=== PATIENT | female | born 1980 | race Caucasian/White ===

== ENCOUNTER 2017-05-20 05:26 | Inpatient (IN) ==
--- OUTSIDE RECORDS SUMMARY | 2017-05-20 05:36 | External Medical Summary | Continuity of Care Document ---
:1980 Author Organization [facility] Address [address] [phone] Phone Support Name Relationship Address Phone Doi Knight spouse [address] [facility] [phone] [place] [address] Allergies, Adverse Reactions, Alerts Substance Reaction Severity Status tuberculin,PPD,multi-puncture Unknown Active Medications Medication Instructions Dosage Effective Dates Status Comments (start - stop) Take 1 by mouth daily - Active Culturelle Probiotics - Active 10 billion cell-200 mg chewable tablet Problems Condition Effective Dates (start - stop) Clinical Status Supervision of elderly multigravida, - second trimester Previous Low Transverse - Encounter for suprvsn of normal - , second trimester 19 weeks gestation of - Supervision of elderly multigravida, - second trimester 14 weeks gestation of - Supervision of elderly multigravida, - second trimester Previous Low Transverse - 19 weeks gestation of - Routine Care, Multigravida 36 weeks gestation of - Routine Care, Multigravida 37 weeks gestation of - Routine Care, Multigravida 38 weeks gestation of - Dysuria Follow-Up, Routine - Follow-Up, Routine - Follow-Up, Routine Painful micturition, unspecified Encounter for suprvsn of normal - , first trimester 9 weeks gestation of - Active Procedures Procedure Date OB Visit No Charge Results Test Name Date and Time Measure Units Reference Range Abnormal Flag Comments Unknown Advance Directives Directive Yes / No Effective Date File Name Unknown Encounters Encounter Practice Location Reason(s) Diagnoses Date Provider Care Team Description For Visit Members Bibiana [place] Supervision of Bob-0 Juju In Womens elderly 5-201 Daily. Health [place], multigravida, 7 700 [address] second Medical 1522, trimesterPrevious [facility], Low Transverse Ayaz Ybarra, C-SectionEncounte 120, , r for suprvsn of [facility] normal , [place], tel:+ second [phone] [id number] weeks , [place]. gestation of tel: [phone] Bibiana Staples Supervision of Bob-0 Juju In Womens Ultrasound elderly - Daily. Health PA, multigravida, 7 700 PO Box second Medical 1522, trimesterPrevious [facility], Low Transverse Ayaz Ybarra, C-Sgbwrso63 weeks 120, , gestation of [place], [place], tel:+ [phone] , [place]. tel: [phone] Bibiana Staples Supervision of October-3 Juju In Womens elderly -201 Daily. Health PA, multigravida, 7 700 PO Box second Medical 1522, [email or web address] weeks [facility], gestation of Ayaz Ybarra, 120, , [facility] [place], tel:+ [phone] , [place]. tel: [phone] Bibiana Staples Encounter for October-0 Juju In Womens suprvsn of normal -201 Daily. Health PA, , first 7 700 PO Box trimester9 weeks Medical 1522, gestation of [facility], Ayaz Ybarra, 120, , [facility] [place], tel:[phone] , [place]. tel:[phone] Bibiana Staples Dec-0 Anderson In Womens Follow-Up, Germaine. Health MARCELL, RoutinePostpartum 5 700 PO Box Follow-Up, Medical 1522, RoutinePainful [facility], micturition, Dr, Ayaz [place], unspecified 120, [id number], [place], tel:[phone] , [place]. tel: [phone] Bibiana Staples DysuriaPostpartum Nov-0 Juju Referring In Womens Follow-Up, 9201 Daily. Provider: Health MARCELL, Routine 5 700 Daily PO Box Medical Juju L, 1522, [facility] Dr Bettie, [facility] [place], 120, [place] [id number], Jhoan [facility] 120, [place], [place]ho[place], tel:[phone] [place], , [place]. [id number]. tel: tel: [phone] Bibiana Staples Routine Care, Oct-2 Juju In Womens [id number] 6-201 Daily. Health MARCELL, weeks gestation 5 700 PO Box of Medical 1522, [place] [address] Bettie, [facility] [place], 120, [id number], [place], tel:[phone] , [place]. tel: [phone] Bibiana Staples Routine Care, Oct-1 Juju In Womens [id number] 9-201 Daily. Health MARCELL, weeks gestation 5 700 PO Box of Medical 1522, [place] [address] Bettie, [facility] [place], 120, [id number], [place], tel:[phone] , [place]. tel: [phone] Bibiana [place] Routine Care, Oct-1 Juju In Womens Braskaqbvavc11 3-201 Daily. Health [place], weeks gestation 5 700 PO Box of Medical 1522, [place] [address] Bettie, [facility] [place], 120, [id number], [place], tel:[phone] , [place]. tel: [phone] Bibiana Staples Sep-2 Juju Referring In Womens 8-201 Daily. Provider: Health MARCELL, 5 700 Daily PO Box Medical Juju L, 1522, Center [address], [facility] [place], 120, [place] [id number], Jhoan [facility] 120, Jhoan [place], tel:[phone] [place], , [place]. [id number]. tel: tel: [phone] Associates [facility] Nimesh In Womens 1-[address], [address] [place] [address] Center 1522, Ayaz Ybarra, 120, [place], [place], [id number], [place] [id number] tel: , [place]. tel: [phone] Family History Family Member Diagnosis Age At Onset Maternal Aunt Uterine Cancer Mother Hypertension Maternal Aunt Cancer, breast Maternal Aunt Cancer, breast Maternal Grandmother Asthma Mother Hyperlipidemia Maternal Aunt Non-Hodgkins Lymphoma Maternal Grandmother COPD Maternal Aunt Cancer, breast Immunizations Vaccine Date Status Comments Influenza, seasonal, injectable, completed Source: Source Unspecified preservative free, 3 yrs or older Tdap completed Source: Source Unspecified Tdap completed Source: Source Unspecified Payers Payer name Insurance type Covered alliance party ID Authorization(s) [facility] Medical [facility] [id number] Social History Type Description Quantity Date Captured Alcohol Use Details No Caffeine Use Details Unknown Tobacco Use Status Unknown Smoking Status Never smoker Vital Signs Date / Height Weight BMI Pulse Blood Temperature Respiratory Body Head BMI Time: Rate Pressure Rate Surface Circumference percentile Area 147.70 24.9 lbs 6 mm[Hg] 11:43 kg/m AM eter (2) Chief Complaint And Reason For Visit Unknown Chief Complaint And Reason For Visit Reason For Referral Reason For Referral Unknown Plan Of Care Date Type Action Status Appointment Isabella Knight BOOKED Future Order: Radiology Order OB Detailed Complete Ultrasound Ordered ([id number]) Date Type Problem Goal Intervention Status Start Date Unknown. History Of Present Illness Encounter Date Complaint History Of Present Illness This patient has no known history of present illness Functional Status Encounter Date Functional Assessment Cognitive Assessment Unknown Medications Administered Medication Instructions Dosage Effective Dates (start - stop) Status Comments Drug Treatment Unknown Instructions Date Instruction Additional Information HIV and other routine tests risk factors identified by history anticipated course of care nutrition and weight gain counseling, special diet toxoplasmosis precautions (cats / raw meat) sexual activity exercise indications for ultrasound influenza vaccine environmental / work hazards travel use of any medications (including supplements, vitamins, herbs, OTC drugs) domestic violence seat belt use childbirth classes / hospital facilities hospital registration genetic testing Zika virus assessment & precautions
--- OUTSIDE RECORDS SUMMARY | 2017-05-20 05:36 | External Medical Summary | Continuity of Care Document ---
:1980 Author Organization [facility] [facility] Address [address] [place], [place] [phone] Phone Support Name Relationship Address Phone Dio Knight spouse [address] [facility] [phone] [place] [address] Allergies, Adverse Reactions, Alerts Substance Reaction Severity Status tuberculin,PPD,multi-puncture Unknown Active Medications Medication Instructions Dosage Effective Dates Status Comments (start - stop) Take 1 by mouth daily - Active Culturelle Probiotics - Active 10 billion cell-200 mg chewable tablet Problems Condition Effective Dates (start - stop) Clinical Status Previous Low Transverse - Supervision of elderly multigravida, - third trimester Encounter for suprvsn of normal - , third trimester 30 weeks gestation of - Supervision of elderly multigravida, - second trimester 14 weeks gestation of - Supervision of elderly multigravida, - second trimester Previous Low Transverse - 23 weeks gestation of - Supervision of elderly multigravida, - second trimester Previous Low Transverse - 19 weeks gestation of - Supervision of elderly multigravida, - second trimester Previous Low Transverse - Encounter for suprvsn of normal - , second trimester 19 weeks gestation of - Supervision of elderly multigravida, - second trimester Previous Low Transverse - Encounter for suprvsn of normal - , second trimester 26 weeks gestation of - Supervision of elderly multigravida, - third trimester Previous Low Transverse - Encounter for suprvsn of normal - , third trimester 31 weeks gestation of - Dysuria Follow-Up, Routine - Painful micturition, unspecified Follow-Up, Routine - Follow-Up, Routine Encounter for suprvsn of normal - , first trimester 9 weeks gestation of - Routine Care, Multigravida 38 weeks gestation of - Routine Care, Multigravida 36 weeks gestation of - Routine Care, Multigravida 37 weeks gestation of - Active Procedures Procedure Date OB Visit No Charge Results Test Name Date and Time Measure Units Reference Range Abnormal Flag Comments Unknown Advance Directives Directive Yes / No Effective Date File Name Unknown Encounters Encounter Practice Location Reason(s) Diagnoses Date Provider Care Team Description For Visit Members Bibiana Staples Supervision of Juju In Women elderly 2-201 [place]. amairani Heard, 7 700 PO Box [facility] 1522, trimesterPrevious [facility] Ayaz [address] Dr, C-SectionEncounte 120, [id number], r for suprvsn of [facility] normal , [place], tel:[phone] third [phone] [id number] weeks gestation , [place]. of tel: [phone] Bibiana Staples Previous Low Sep-2 Juju In Womens Transverse 2-201 Daily. Ani FAITH C-SectionSupervis 7 700 PO Box [facility] 1522, [facility] Ayaz Ybarra, trimesterEncounte 120, [id number], r for suprvsn of [facility] normal , [place], tel:[phone] third [id number] [phone] [id number] weeks gestation , [place]. of tel: [phone] Bibiana Staples Supervision of Juju In Womens elderly 8-201 Daily. Health PA, multigravida, 7 700 PO Box second Medical 1522, trimesterPrevious [facility], Low Transverse Ayaz Ybarra, C-SectionEncounte 120, [id number], r for suprvsn of [place], [place] normal , [place], tel:[phone] second [phone] [email or web address] weeks , [place]. gestation of tel:[phone] Associates [facility] Supervision of Aug-0 Juju In Womens elderly 2-201 Daily. Health PA, multigravida, 7 700 PO Box second Medical 1522, trimesterPrevious [facility], Low Transverse Ayaz Ybarra, C-Qqiqtle99 weeks 120, [id number], gestation of [place], tel:[phone] , [place]. tel: [phone] Bibiana [place] Supervision of Dec-0 Juju In Womens elderly 5-201 Daily. Health PA, multigravida, 7 700 PO Box second Medical 1522, trimesterPrevious [facility], Low Transverse Ayaz Ybarra, C-SectionEncounte 120, , r for suprvsn of [place], [place] normal , [place], tel:+ second [phone] [id number] weeks , [place]. gestation of tel:[phone] Associates [facility] Supervision of Dec-0 Juju In Womens Ultrasound elderly 5-201 Daily. Health PA, multigravida, 7 700 PO Box second Medical 1522, trimesterPrevious [facility], Low Transverse Ayaz Ybarra, C-Ockoyts64 weeks 120, [id number], gestation of [place], tel:+ [phone] , [place]. tel: [phone] Bibiana Sta[place] Supervision of October-3 Juju In Womens elderly 1-201 Daily. Health PA, multigravida, 7 700 PO Box second Medical 1522, [email or web address] weeks [facility], gestation of Ayaz Ybarra, 120, [id number], [place], [place], tel:[phone] , [place]. tel: [phone] Bibiana Staples Encounter for October-0 Juju In Womens suprvsn of normal 1-201 Daily. Ani FAITH, , first 7 700 PO Box trimester9 weeks Medical 1522, gestation of [facility], , [place], 120, [id number], [place], [place], tel:+ [phone] , [place]. tel: [phone] Bibiana Staples Painful Dec-0 Anderson In Womens micturition, 7-201 [place]. Ani FAITH, unspecifiedPostpa 5 700 PO Box rtum Follow-Up, Medical 1522, RoutinePostpartum [facility], Follow-Up, , Ayaz [place], Routine 120, [id number], [place], [place], tel: [phone] , [place]. tel: [phone] Bibiana [place] DysuriaPostpartum Nov-0 Juju Referring In Womens Follow-Up, 9-201 Daily. Provider: Ani FAITH, Routine 5 700 Daily PO Box Medical Juju L, 1522, [place] [address] Bettie, , [facility] [place], 120, [place] , Jhoan [place] 120, [place], [place], tel:[phone] [place], , [place]. [id number]. tel: tel: [phone] Bibiana [place] Routine Care, Oct-2 Juju In Womens [id number] 6-201 Daily. Ani FAITH, weeks gestation 5 700 PO Box of Medical 1522, [place] [address] Bettie, [place], 120, [id number], [place], [place], tel: [phone] , [place]. tel: [phone] Bibiana [place] Routine Care, Oct-1 Juju In Womens [id number] 9-201 Daily. Ani FAITH, weeks gestation 5 700 PO Box of Medical 1522, [place], , [place], 120, [id number], [place], [place], tel:[phone] , [place]. tel: [phone] Bibiana [place] Routine Care, Oct-1 Juju In Womens [id number] 3-201 Daily. Health PA, weeks gestation 5 700 PO Box of Medical 1522, Center Dr Bettie, [place], 120, [id number], [place], [facility], tel: [phone] , [place]. tel: [phone] [facility] Sep-2 Juju Referring In Womens 8-201 Daily. Provider: Health MARCELL, 5 700 Daily PO Box Medical Juju L, 1522, Center [address] Bettie, [facility], 120, [place] [id number], Jhoan, [place] 120, [place], [place]ho[place], tel: [phone] [place], , [place]. [id number]. tel: tel: [phone] Associates [facility] Mar-3 Nimesh In Womens 1-200 Andrae. 700 Health [place], 8 Medical PO Box Center 1522, , Ayaz Alexandre, 120, [place]ho[place], [id number], [place], [id number] tel: , . tel: [phone] Family History Family Member Diagnosis Age At Onset Maternal Aunt Uterine Cancer Mother Hypertension Maternal Aunt Cancer, breast Maternal Aunt Cancer, breast Maternal Grandmother Asthma Mother Hyperlipidemia Maternal Aunt Non-Hodgkins Lymphoma Maternal Grandmother COPD Maternal Aunt Cancer, breast Immunizations Vaccine Date Status Comments Tdap completed Source: Other Provider Influenza, seasonal, injectable, completed Source: Source Unspecified preservative free, 3 yrs or older Tdap completed Source: Source Unspecified Tdap completed Source: Source Unspecified Payers Payer name Insurance type Covered constitution party ID Authorization(s) [facility] [id number] Social History Type Description Quantity Date Captured Alcohol Use Details No Caffeine Use Details Unknown Tobacco Use Status Unknown Smoking Status Never smoker Vital Signs Date / Height Weight BMI Pulse Blood Temperature Respiratory Body Head BMI Time: Rate Pressure Rate Surface Circumference percentile Area 159.00 26.8 108/61 lbs 7 mm[Hg] 1:19 kg/m PM eter (2) 159.00 26.8 lbs 7 1:19 kg/m PM eter (2) Chief Complaint And Reason For Visit Unknown Chief Complaint And Reason For Visit Reason For Referral Reason For Referral Unknown Plan Of Care Date Type Action Status Appointment Isabella Knight BOOKED Appointment Isabella Knight BOOKED Future Order: Radiology Order OB Detailed Complete Ultrasound Ordered ([id number]) Date Type Problem Goal Intervention Status Start [...]
--- OUTSIDE RECORDS SUMMARY | 2017-05-20 05:36 | External Medical Summary | Continuity of Care Document ---
:1980 Author Organization [facility] [employer] [facility] Address [address] [place], [place] [phone] Phone Support Name Relationship Address Phone Dio Knight spouse [address] [facility] [phone] [place] [address] Allergies, Adverse Reactions, Alerts Substance Reaction Severity Status tuberculin,PPD,multi-puncture Unknown Active Medications Medication Instructions Dosage Effective Dates Status Comments (start - stop) Take 1 by mouth daily - Active Culturelle Probiotics - Active 10 billion cell-200 mg chewable tablet Problems Condition Effective Dates (start - stop) Clinical Status Supervision of elderly multigravida, - third trimester Previous Low Transverse - Encounter for suprvsn of normal - , third trimester 31 weeks gestation of - Supervision of elderly [...] suprvsn of normal - , third trimester 33 weeks gestation of - Supervision of elderly multigravida, - third trimester Previous Low Transverse - Encounter for suprvsn of normal - , third trimester 30 weeks gestation of - Dysuria Follow-Up, Routine [...] Visit Members Bibiana Sta[place] Supervision of Juju Referring In Womens elderly 6-201 Daily. Provider: amairani Heard, 7 700 Daily PO Box [facility] Juju L, 1522, trimesterPrevious [place] [address] [facility] [place], [facility] 120, [place] [id number], r for suprvsn of [facility] 120, normal , Jhoan [place], tel:+2 third [id number] [place], 441604 weeks gestation , [place]. [id number]. of tel: tel: [phone] Bibiana Sta[place] Supervision of Juju In Womens elderly 2-201 Daily. amairani Heard, 7 700 PO Box [facility] Medical 1522, trimesterPrevious [place] [address], Ste [place], C-SectionEncounte 120, [id number], r for suprlogan lomax [place], normal , [place], tel:+[phone] third [id number] [phone] 417264 weeks gestation , [place]. of tel: [phone] Bibiana [place] Supervision of Juju In Womens elderly 2-201 [place]. Health PA, multigravida, 7 700 PO Box third Medical 1522, trimesterPrevious [facility] Alexandre Transverse Ayaz Ybarra, C-SectionEncounte 120, [id number], r for suprlogan lomax [place], normal , [place], tel:+[phone] third [id number] [phone] 245447 weeks gestation , [place]. of tel: [phone] Bibiana Sta[place] Supervision of Juju In Womens elderly 8- [place]. Health PA, multigravida, 7 700 PO Box second Medical 1522, trimesterPrevious Center Bi [place]re Transverse Ayaz Ybarra, C-SectionEncounte 120, [id number], r for suprlogan lomax [place], normal , [place], tel:+[phone] second [phone] [id number] weeks , [place]. gestation of tel: [phone] Bibiana Sta[place] Supervision of Juju In Womens elderly 2-201 [place]. Health PA, multigravida, 7 700 PO Box second Medical 1522, trimesterPrevious Center Bi [place]re Transverse Ayaz Ybarra, C-Gmisvey46 weeks 120, , gestation of [place], [place], tel:[phone] , [place]. tel: [phone] Bibiana [place] Supervision of Juju In Womens elderly 5-201 Daily. Health PA, multigravida, 7 700 PO Box second Medical 1522, trimesterPrevious Center Bi Alexandre Transverse Ayaz Ybarra, C-SectionEncounte 120, [id number], r for Billy, normal , [place], tel:[phone] second [phone] [id number] weeks , [place]. gestation of tel: [phone] Bibiana [place] Supervision of Bob-0 Juju In Womens Ultrasound elderly 5-201 Daily. Health MARCELL, multigravida, 7 700 PO Box second Medical 1522, trimesterPrevious [facility], Low Transverse Ayaz Ybarra, C-Uuqusjs13 weeks 120, , gestation of [place], [place], tel:[phone] , [place]. tel: [phone] Bibiana [place] Supervision of October-3 Juju In Womens elderly 1-201 Daily. Health MARCELL, multigravida, 7 700 PO Box second Medical 1522, [id number] weeks [facility], gestation of Ayaz Ybarra, 120, , [place], [place], tel: [phone] , [place]. tel: [phone] Bibiana [place] Encounter for October-0 Juju In Womens suprvsn of normal -201 Daily. Ani FAITH, , first 7 700 PO Box trimester9 weeks Medical 1522, gestation of [facility], Ayaz Ybarra, 120, , [place], [place], tel:[phone] , [place]. tel: [phone] Bibiana [place] Painful Dec-0 Anderson In Womens micturition, - Germaine. Health MARCELL, unspecifiedPostpa 5 700 PO Box rtum Follow-Up, Medical 1522, RoutinePostpartum [facility], Follow-Up, Ayaz Ybarra, Routine 120, , [place], [place], tel: [phone] , [place]. tel: [phone] Bibiana [place] DysuriaPostpartum Nov-0 Juju Referring In Womens Follow-Up, Daily. Provider: Ani FAITH, Routine 5 700 Daily PO Box Medical Juju L, 1522, [place] [address] [place], , Ayaz [place], 120, Center [id number], Jhoan Ayaz 120, [place], [place]hoan, tel: [phone] [place], , [place]. [id number]. tel: tel: [phone] Associates [facility] Routine Care, Oct-2 Juju In Womens [id number] 6-201 Daily. Health PA, weeks gestation 5 700 PO Box of Medical 1522, [place] [address] Bettie, [facility] [place], 120, [id number], [place], [place], tel: [phone] , [place]. tel: [phone] Bibiana [place] Routine Care, Oct-1 Juju In Womens [id number] 9-201 Daily. Health PA, weeks gestation 5 700 PO Box of Medical 1522, [place] [address] Bettie, [facility] [place], 120, [id number], [place], [place], tel: [phone] , [place]. tel: [phone] Bibiana [place] Routine Care, Oct-1 Juju In Womens [id number] 3-201 Daily. Health PA, weeks gestation 5 700 PO Box of Medical 1522, [place] [address] Bettie, [facility] [place], 120, [id number], [place], [place], tel:[phone] , [place]. tel: [phone] Bibiana [place] Sep-2 Juju Referring In Womens 8-201 Daily. Provider: Health MARCELL, 5 700 Daily PO Box Medical Juju , 1522, Center [address], [facility] Heather [place], 120, [place] [id number], [place] [address], Jhoan [place], tel:[phone] [place], , [place]. [id number]. tel: tel: [phone] Bibiana [place] Oct-3 Nimesh In Womens 1-200 [place]rae. 700 Health [place], 8 Medical PO Box Center 1522, , Ayaz Alexandre, 120, Jhoan [place] [id number], [place], [id number] tel: , [place]. tel: [phone] Family History Family Member Diagnosis Age At Onset Maternal Aunt Uterine Cancer Mother Hypertension Maternal Aunt Cancer, breast Maternal Aunt Cancer, breast Maternal Grandmother Asthma Mother Hyperlipidemia Maternal Aunt Non-Hodgkins Lymphoma Maternal Grandmother COPD Maternal Aunt Cancer, breast Immunizations Vaccine Date Status Comments Influenza, injectable, completed Source: Source Unspecified quadrivalent, preservative free, 3 yrs or older Tdap completed Source: Other Provider Influenza, seasonal, injectable, completed Source: Source Unspecified preservative free, 3 yrs or older Tdap completed Source: Source Unspecified Tdap completed Source: Source Unspecified Payers Payer name Insurance type Covered alliance party ID Authorization(s) [facility] [id number] Social History Type Description Quantity Date Captured Alcohol Use Details No Caffeine Use Details Unknown Tobacco Use Status Unknown Smoking Status Never smoker Vital Signs Date / Height Weight BMI Pulse Blood Temperature Respiratory Body Head BMI Time: Rate Pressure Rate Surface Circumference percentile Area 26.8 -2016 7 1:17 kg/m PM eter (2) 161.30 27.2 120/67 -2017 lbs 6 mm[Hg] 1:21 kg/m PM eter (2) Chief Complaint And Reason For Visit Unknown Chief Complaint And Reason For Visit Reason For Referral Reason For Referral Unknown Plan Of Care Date Type Action Status Appointment Isabella Knight BOOKED Appointment Isabella Knight BOOKED Appointment Isabella Knight BOOKED Appointment Isabella Knight BOOKED Future Order: Radiology Order OB Detailed Complete Ultrasound Ordered ([id number]) Date Type Problem Goal Intervention Status Start [...]
--- OUTSIDE RECORDS SUMMARY | 2017-05-20 05:36 | External Medical Summary | Continuity of Care Document ---
:1980 Author Organization [facility] Address [address] [place], [place] [address] Phone Support Name Relationship Address Phone Dio Knight spouse [address] [facility] [phone] [place] [address] Allergies, Adverse Reactions, Alerts Substance Reaction Severity [...] second trimester 19 weeks gestation of - Routine Care, Multigravida 36 weeks gestation of - Routine Care, Multigravida 37 weeks gestation of - Routine Care, Multigravida 38 weeks gestation of - Dysuria Follow-Up, Routine - Follow-Up, Routine - Follow-Up, Routine Painful micturition, unspecified Encounter for suprvsn of normal - , first trimester 9 weeks gestation of - Active Procedures Procedure Date Detailed Compled OB Ultrasound, Single Fetus Results Test Name Date and Time Measure Units Reference Range Abnormal Flag Comments Unknown Advance Directives Directive Yes / No Effective Date File Name Unknown Encounters Encounter Practice Location Reason(s) Diagnoses Date Provider Care Team Description For Visit Members Bibiana [place] Supervision of Dec-0 Juju In Womens elderly - Daily. Health PA, multigravida, 7 700 PO Box second Medical 1522, trimesterPrevious [facility], Low Transverse Ayaz Ybarra, C-SectionEncounte 120, , r for suprvsn of [place], [place] , [place], tel:+ second [phone] qjitykhgz11 weeks , [place]. gestation of tel: [phone] Bibiana [place] Supervision of Dec-0 Juju In Womens Ultrasound elderly - Daily. Health MARCELL, multigravida, 7 700 PO Box second Medical 1522, trimesterPrevious [facility], Low Transverse Ayaz Ybarra, C-Uimdrat83 weeks 120, , gestation of [place], tel:+ [phone] , [place]. tel: [phone] Bibiana [place] Supervision of October-3 Juju In Womens elderly - Daily. Health MARCELL, multigravida, 7 700 PO Box second Medical 1522, weeks [facility], gestation of Ayaz Ybarra, 120, , [place], tel:[phone] , [place]. tel: [phone] Bibiana [place] Encounter for October-0 Juju In Womens suprvsn of normal - Daily. Health MARCELL, , first 7 700 PO Box trimester9 weeks Medical 1522, gestation of [facility], Ayaz Ybarra, 120, , [place], tel:[phone] , [place]. tel: [phone] Bibiana [place] Dec-0 Anderson In Womens Follow-Up, [facility]. Health MARCELL, RoutinePostpartum 5 700 PO Box Follow-Up, Medical 1522, RoutinePainful [facility], micturition, Ayaz Ybarra, unspecified 120, [id number], [place], tel:[phone] , [place]. tel: [phone] Bibiana [place] DysuriaPostpartum Nov-0 Juju Referring In Womens Follow-Up, 9-201 Daily. Provider: Health PA, Routine 5 700 Daily PO Box Medical Juju L, 1522, [facility] [address] Bett[place], [facility] [place], 120, [place] [id number], Jhoan [facility] 120, [place], [place]ho[place], tel:[phone] [place], , [place]. [id number]. tel: tel: [phone] Bibiana [place] Routine Care, Oct-2 Juju In Womens Lvhnijjpmppr00 6-201 Daily. Health PA, weeks gestation 5 700 PO Box of Medical 1522, [place] Dr Bettie, [facility] [place], 120, [id number], [place], tel:[phone] , [place]. tel: [phone] Bibiana [place] Routine Care, Oct-1 Juju In Womens Qtbncedtycyz12 9-201 Daily. Health PA, weeks gestation 5 700 PO Box of Medical 1522, [place] Dr Bettie, [facility] [place], 120, [id number], [place], tel:[phone] , [place]. tel: [phone] Bibiana [place] Routine Care, Oct-1 Juju In Womens Zospnjephvyp23 3-201 Daily. Health PA, weeks gestation 5 700 PO Box of Medical 1522, [place] Dr Bettie, [facility] [place], 120, [id number], [place], tel:[phone] , [place]. tel: [phone] Bibiana [place] Sep-2 Juju Referring In Womens 8-201 Daily. Provider: Health PA, 5 700 Daily PO Box Medical Juju L, 1522, Center [address], [facility] [place], 120, [place] [id number], Jhoan [facility] 120, [place], Jhoan, tel: [phone] [place], , [place]. [id number]. tel: tel: [phone] Associates J[facility] Nimesh In Womens 1-200 [place]. [facility] [place], 8 Medical Box Center 1522, Ayaz Ybarra, 120, [place], [place], [id number], [place], [place] [id number] tel: , [place]. tel: [phone] Family History Family Member Diagnosis Age At [...] Unspecified Payers Payer name Insurance type Covered green party ID Authorization(s) [facility], [facility] [id number] Social History Type Description Quantity Date Captured Unknown Vital Signs Date / Height Weight BMI Pulse Blood Temperature Respiratory Body Head BMI Time: Rate Pressure Rate Surface Circumference percentile Area Unknown Chief Complaint And Reason For Visit Unknown Chief Complaint And Reason For Visit Reason For Referral Reason For Referral Unknown Plan Of Care Date Type Action Status Appointment Isabella Knight BOOKED Future Order: Radiology Order OB Detailed Complete Ultrasound Ordered ([id number]) Date Type Problem Goal Intervention Status Start [...]
--- OUTSIDE RECORDS SUMMARY | 2017-05-20 05:36 | External Medical Summary | Continuity of Care Document ---
:1980 Author Organization [facility] Address [address] [place], [place] [address] Phone Support Name Relationship Address Phone Dio Knight spouse [address] [facility] [phone] [place] [address] Allergies, Adverse Reactions, Alerts Substance Reaction Severity [...] suprvsn of normal - , third trimester 36 weeks gestation of - Supervision of elderly [...] suprvsn of normal - , third trimester 38 weeks gestation of - Supervision of elderly [...] suprvsn of normal - , third trimester 37 weeks gestation of - Supervision of elderly multigravida, - third trimester Previous Low Transverse - Encounter for suprvsn of normal - , third trimester 35 weeks gestation of - Dysuria Follow-Up, Routine - Painful micturition, unspecified Follow-Up, Routine - Follow-Up, Routine Encounter for suprvsn of normal - , first trimester 9 weeks gestation of - Routine Care, Multigravida 38 weeks gestation of - Routine Care, Multigravida 36 weeks gestation of - Routine Care, Multigravida 37 weeks gestation of - Active Procedures Procedure Date OB Visit No Charge - SITE COORDINATOR Results Test Name Date and Time Measure Units Reference Range Abnormal Flag Comments Unknown Advance Directives Directive Yes / No Effective Date File Name Unknown Encounters Encounter Practice Location Reason(s) Diagnoses Date Provider Care Team Description For Visit Members Bibiana [place] Supervision of Nov-2 Juju In Womens elderly 0-201 Daily. Health MARCELL fabianavida, 7 700 PO Box third Medical 1522, trimesterPrevious [facility] [place], Low Transverse Ayaz Ybarra, C-SectionEncounte 120, [id number], r for [place], [place] , [place], tel:[phone] 083475 weeks gestation , [place]. of tel: [phone] Bibiana [place] Supervision of Nov-1 Juju In Womens elderly 3-201 Daily. Health MARCELL riyagravida, 7 700 PO Box third Medical 1522, trimesterPrevious [facility] [place], Low Transverse Ayaz Ybarra, C-SectionEncounte 120, [id number], r for Billy, normal , [place], tel:+[phone] third [id number] [phone] 372836 weeks gestation , [place]. of tel: [phone] Bibiana [place] Supervision of Nov-0 Juju In Womens elderly 6-201 Daily. Health MARCELL riyagravida, 7 700 PO Box third Medical 1522, trimesterPrevious [facility] [place], Low Transverse Ayaz Ybarra, C-SectionEncounte 120, [id number], r for [place], normal , [place], tel:+[phone] third [id number] [phone] 337854 weeks gestation , [place]. of tel: [phone] Bibiana [place] Supervision of Oct-3 Juju In Womens elderly 0-201 Daily. riya Heardgravida, 7 700 PO Box third Medical 1522, trimesterPrevious Center Bettie Low Transverse Ayaz Ybarra, C-SectionEncounte 120, [id number], r for [place], normal , [place], tel:[phone] third [id number] [phone] 332415 weeks gestation , [place]. of tel: [phone] Bibiana [place] Supervision of Oct-1 Juju Referring In Womens elderly 6-201 Daily. Provider: Health PA, multigravida, 7 700 Daily PO Box third Medical Juju L, 1522, trimesterPrevious Center 700 Bi Alexandre Transverse , [facility] Heather [place], C-SectionEncounte 120, [place] [address] , r for supr[place]engSam[place] [address], normal , [place], [place], tel: third [id number] [phone] [place], [address] weeks gestation , [place]. [id number]. of tel: tel: [phone] Bibiana [place] Supervision of Mar-0 Juju In Womens elderly 2-201 Daily. Health PA, multigravida, 7 700 PO Box third Medical 1522, trimesterPrevious [facility] [place], Bi Transverse Ayaz Ybarra, C-SectionEncounte 120, [id number], r for suprpauln monie [place], normal , [place], tel: third [phone] weeks gestation , [place]. of tel: [phone] Bibiana [place] Supervision of Feb-2 Juju In Womens elderly 2- Daily. Health MARCELL, multigravida, 7 700 PO Box third Medical 1522, trimesterPrevious [facility] [place], Bi Transverse Ayaz Ybarra, C-SectionEncounte 120, [id number], r for suprlogan lomax [place], [place] , [place], tel:[phone] third [id number] 629149 weeks gestation , [place]. of tel: [phone] Bibiana [place] Supervision of Jan-2 Juju In Womens elderly 8- Daily. Health PA, multigravida, 7 700 PO Box second Medical 1522, trimesterPrevious Center Bettie Low Transverse Ayaz Ybarra, C-SectionEncounte 120, [id number], r for Billy, normal , [place], tel:[phone] second [phone] 866146 weeks , [place]. gestation of tel: [phone] Bibiana [place] Supervision of Jan-0 Juju In Womens elderly 2-201 Daily. Health PA, multigravida, 7 700 PO Box second Medical 1522, trimesterPrevious [facility], Low Transverse Ayaz Ybarra, C-Bmzxbcq76 weeks 120, [id number], gestation of [place], tel:+ [phone] , [place]. tel: [phone] Bibiana [place] Supervision of Bob-0 Juju In Womens elderly 5-201 Daily. Health PA, multigravida, 7 700 PO Box second Medical 1522, trimesterPrevious [facility], Low Transverse Ayaz Ybarra, C-SectionEncounte 120, , r for suprvsn of [place], normal , [place], tel:+ second [phone] [id number] weeks , [place]. gestation of tel: [phone] Bibiana [place] Supervision of Dec-0 Juju In Womens Ultrasound elderly -201 Daily. Health MARCELL, multigravida, 7 700 PO Box second Medical 1522, trimesterPrevious [facility], Low Transverse Ayaz Ybarra, C-Wewwrjb83 weeks 120, , gestation of [place], [place], tel:[phone] , [place]. tel: [phone] Bibiana [place] Supervision of October-3 Juju In Womens elderly -201 Daily. Health MARCELL, multigravida, 7 700 PO Box second Medical 1522, euqfttjrr96 weeks [facility], gestation of Ayaz Ybarra, 120, , [place], [place], tel:+ [phone] , [place]. tel: [phone] Bibiana [place] Encounter for October-0 Juju In Womens suprvsn of normal -201 Daily. Health PA, , first 7 700 PO Box trimester9 weeks Medical 1522, gestation of [facility], Ayaz Ybarra, 120, [id number], [place], [place], tel:[phone] , [place]. tel: [phone] Bibiana [place] Painful Dec-0 Anderson In Womens micturition, [place]. Health PA, unspecifiedPostpa 5 700 PO Box rtum Follow-Up, Medical 1522, RoutinePostpartum [place], Follow-Up, Ayaz Ybarra, Routine 120, [id number], [place], [place], tel:[phone] , [place]. tel: [phone] Bibiana [place] DysuriaPostpartum Nov-0 Juju Referring In Womens Follow-Up, 9-201 Daily. Provider: Health PA, Routine 5 700 Daily PO Box Medical Juju L, 1522, [place] [address], [facility] [place], 120, [place] [id number], Jhoan [facility] 120, [place], [place], tel:[phone] [place], , [place]. [id number]. tel: tel: [phone] Bibiana [place] Routine Care, Oct-2 Juju In Womens Utjmzfyzvoob03 6-201 Daily. Health PA, weeks gestation 5 700 PO Box of Medical 1522, [place] [address] Bettie, [facility] [place], 120, [id number], [place], [place], tel:[phone] , [place]. tel: [phone] Bibiana [place] Routine Care, Oct-1 Juju In Womens Auteijlovtng06 9-201 Daily. Health PA, weeks gestation 5 700 PO Box of Medical 1522, [place] [address] Bettie, [facility] [place], 120, [id number], [place], [place], tel:[phone] , [place]. tel: [phone] Bibiana [place] Routine Care, Oct-1 Juju In Womens Rkgjaeoyvvru25 3-201 Daily. Health PA, weeks gestation 5 700 PO Box of Medical 1522, [place] [address] Bettie, [facility] [place], 120, [id number], [place], [place], tel:[phone] , [place]. tel: [phone] Bibiana [place] Sep-2 Juju Referring In Womens 8-201 Daily. Provider: Health PA, 5 700 Daily PO Box Medical Juju L, 1522, [place] [address], [facility] [place], 120, [place] [id number], Ayaz [place] 120, [place] Jhoan [place], tel: [phone] [place], , [place]. [id number]. tel: tel: [phone] Associates J[facility] Nimesh In Womens [address] [place] [address], 8 Medical PO Box Center 1522, Ayaz Ybarr[place]ita, 120, Jhoan [place], [id number], [place], [place] [id number] tel: , [place]. tel: [phone] Family History Family Member Diagnosis Age At [...] Unspecified Payers Payer name Insurance type Covered republican ID Authorization(s) [facility] [id number] Social History Type Description Quantity Date Captured Alcohol Use Details No Caffeine Use Details Unknown Tobacco Use Status Unknown Smoking Status Never smoker Vital Signs Date / Height Weight BMI Pulse Blood Temperature Respiratory Body Head BMI Time: Rate Pressure Rate Surface Circumference percentile Area 165.70 28.0 121/2017 lbs 0 mm[Hg] 9:48 kg/m AM eter (2) Chief Complaint And Reason For Visit Unknown Chief Complaint And Reason For Visit Reason For Referral Reason For Referral Unknown Plan Of Care Date Type Action Status Appointment Isabella Knight [facility] R C/S- MB Assist BOOKED Appointment Isabella Knight BOOKED Future Order: Radiology Order OB Detailed Complete Ultrasound Ordered ([id number]) Date Type Problem Goal Intervention Status Start [...]
--- OUTSIDE RECORDS SUMMARY | 2017-05-20 05:36 | External Medical Summary | Continuity of Care Document ---
:1980 Author Organization [facility] Address [address] [place], [place] [address] Phone Support Name Relationship Address Phone Dio Knight spouse 400 [facility] [phone] [place] [address] Allergies, Adverse Reactions, Alerts Substance Reaction Severity [...] second trimester 19 weeks gestation of - Dysuria Follow-Up, Routine [...] For Visit Members Bibiana [place] Supervision of Jan-0 Juju In Womens elderly 2-201 Daily. Ani FAITH fabianavipanfilo, 7 700 PO Box second Medical 1522, trimesterPrevious [facility] [place], Low Transverse Ayaz Ybarra, C-Spmoycb07 weeks 120, [id number], gestation of [place], tel:+ [phone] , [place]. tel: [phone] Bibiana [place] Supervision of Dec-0 Juju In Womens elderly 5-201 Daily. Ani FAITH talapanfilo, 7 700 PO Box second Medical 1522, trimesterPrevious [facility], Low Transverse Ayaz Ybarra, C-SectionEncounte 120, , r for suprvsn of [place], [place] , [place], tel:+ second [phone] [id number] weeks , [place]. gestation of tel: [phone] Bibiana [place] Supervision of Dec-0 Juju In Womens Ultrasound elderly 5-201 Daily. Ani FAITH amairani, 7 700 PO Box second Medical 1522, trimesterPrevious [facility], Low Transverse Ayaz Ybarra, C-Fgvmbvx84 weeks 120, [id number], gestation of [place], [place], tel:[phone] , [place]. tel: [phone] Bibiana [place] Supervision of October-3 Juju In Womens elderly 1-201 Daily. Ani FAITH, riyagravida, 7 700 PO Box second Medical 1522, [id number] weeks [facility] [place], gestation of Ayaz Ybarra, 120, [id number], [place], [place], tel:[phone] , [place]. tel: [phone] Bibiana [place] Encounter for October-0 Juju In Womens suprvsn of normal 1-201 Daily. Health MARCELL, , first 7 700 PO Box trimester9 weeks Medical 1522, gestation of [facility], , Ayaz VEGA, 120, [id number], [place], [place], tel:+ [phone] , [place]. tel: [phone] Bibiana [place] Painful Dec-0 Anderson In Womens micturition, 7-201 Germaine. Health MARCELL, unspecifiedPostpa 5 700 PO Box rtum Follow-Up, Medical 1522, RoutinePostpartum [facility], Follow-Up, , Ayaz VEGA, Routine 120, , [place], [place], tel:[phone] , [place]. tel: [phone] Bibiana [place] DysuriaPostpartum Nov-0 Juju Referring In Womens Follow-Up, 9-201 Daily. Provider: Ani FAITH, Routine 5 700 Daily PO Box Medical Juju L, 1522, [place] [address] Bettie, , [facility] [place], 120, [place] , Jhoan [facility] 120, [place], [place], tel:[phone] [place], , [place]. [id number]. tel: tel: [phone] Bibiana [place] Routine Care, Oct-2 Juju In Womens Ripvyamtynbt52 6-201 Daily. Ani FAITH, weeks gestation 5 700 PO Box of Medical 1522, [place] Dr Bettie, Ayaz [place], 120, [id number], [place], [place], tel:[phone] , [place]. tel: [phone] Bibiana [place] Routine Care, Oct-1 Juju In Womens Cruttdokpaoj13 9-201 Daily. Ani FAITH, weeks gestation 5 700 PO Box of Medical 1522, [place] Dr Bettie, Ayaz [place], 120, [id number], [place], [place], tel:[phone] , [place]. tel: [phone] Bibiana [place] Routine Care, Oct-1 Juju In Womens Prxhljdzudti18 3-201 Daily. Health MARCELL, weeks gestation 5 700 PO Box of Medical 1522, Center Dr Bettie, [facility] [place], 120, [id number], [place], [place], tel: [phone] , [place]. tel: [phone] Associates Jhoan Sep-2 Juju Referring In Womens 8-201 Daily. Provider: [facility], 5 700 Daily PO Box Medical Juju L, 1522, Center [address] Dr Bettie, [facility], 120, [place] [id number], [place], [facility] 120, [place], [place], tel: [phone] [place], , [place]. [id number]. tel: tel: [phone] Associates Jhoan Mar-3 Nimesh In Womens 1-200 [place]. 700 [facility], 8 Medical PO Box Center 1522, , Ayaz Alexandre, 120, Jhoan [place], [id number], [place], [place] [id number] tel: , . tel: [phone] Family History Family Member Diagnosis Age At [...] Insurance type Covered constitution party ID Authorization(s) [facility] [id number] Social History Type Description Quantity Date Captured [...] Radiology Order OB Detailed Complete Ultrasound Ordered ([id number]) Date Type Problem Goal Intervention Status Start [...]
--- OUTSIDE RECORDS SUMMARY | 2017-05-20 05:37 | External Medical Summary | Continuity of Care Document ---
:1980 Author Organization [facility] Address [address] [place], [place] [address] Phone Support Name Relationship Address Phone Dio Knight spouse 400 [facility] [phone] [place] [address] Allergies, Adverse Reactions, Alerts Substance Reaction Severity [...] Procedure Date OB Visit No Charge - SOLID PLASTERER Hemoglobin count, colorimetric Hematocrit blood count Glucose test Venpnctr fngr/heel/ear stick routne Results Test Name Date and Time Measure Units Reference Range Abnormal Flag Comments Panel Description: Glucose [Mass/volume] in Serum or Plasma --1 hour post 50 g glucose PO GLUCOSE, GESTATIONAL 87 mg/dL <140 N Test performed at [facility] SCREEN (50G)-140 10:30:00 [facility] [place] [address] [place] [address]Arqkkmnx: IRIS ABDI DO,MPH Panel Description: HEMOGLOBIN + HEMATOCRIT HEMOGLOBIN 10:30:00 11.9 g/dL 11.7-15.5 N HEMATOCRIT 10:30:00 35.1 % 35.0-45.0 N REPORT COMMENT:FASTING :NOTest performed at [facility] [id number] [place], [place] [id number]: IRIS ABDI DO,MPH Advance Directives Directive Yes / No Effective Date File Name Unknown Encounters Encounter Practice Location Reason(s) Diagnoses Date Provider Care Team Description For Visit Members Bibiana [place] Supervision of Juju In Womens elderly 8 Daily. Health PA, multigravida, 7 700 PO Box second Medical 1522, trimesterPrevious Center [place], Low Transverse , Ayaz [place], C-SectionEncounte 120, [id number], r for suprvsn of [place], [place] , [place], tel:[phone] second [phone] gxzpijmhl91 weeks , [place]. gestation of tel:[phone] Bibiana [place] Supervision of Juju In Womens elderly 2-201 Daily. Health PA, multigravida, 7 700 PO Box second Medical 1522, trimesterPrevious [facility], Low Transverse Ayaz Ybarra, C-Fdbsgec44 weeks 120, [id number], gestation of [place], [place], tel:[phone] , [place]. tel: [phone] Associates Jhoan Supervision of Bob-0 Juju In Womens elderly 5-201 Daily. Health PA, multigravida, 7 700 PO Box second Medical 1522, trimesterPrevious [facility], Low Transverse Ayaz Ybarra, C-SectionEncounte 120, , r for suprvsn of [place], normal , [place], tel:+ second [phone] weeks , [place]. gestation of tel: [phone] Associates Jhoan Supervision of Bob-0 Juju In Womens Ultrasound elderly 5-201 Daily. Health PA, multigravida, 7 700 PO Box second Medical 1522, trimesterPrevious [facility], Low Transverse Ayaz Ybarra, C-Eutnivc91 weeks 120, [id number], gestation of [place], [place], tel:[phone] , [place]. tel: [phone] Bibiana [place] Supervision of May-3 Juju In Womens elderly -201 Daily. Health MARCELL, multigravida, 7 700 PO Box second Medical 1522, lrgpxirvi34 weeks [facility], gestation of Ayaz Ybarra, 120, , [place], tel:[phone] , [place]. tel: [phone] Bibiana [place] Encounter for May-0 Juju In Womens suprvsn of normal -201 Daily. Health PA, , first 7 700 PO Box trimester9 weeks Medical 1522, gestation of [facility], Ayaz Ybarra, 120, [id number], [place], tel:[phone] , [place]. tel: [phone] Bibiana [place] Painful Dec-0 [place] In Womens micturition, - Germaine. Health PA, unspecifiedPostpa 5 700 PO Box rtum Follow-Up, Medical 1522, RoutinePostpartum [place] Bettie, Follow-Up, Ayaz Ybarra, Routine 120, [id number], [place], [place], tel: [phone] , [place]. tel: [phone] Bibiana [place] DysuriaPostpartum Nov-0 Juju Referring In Womens Follow-Up, 9-201 Daily. Provider: Health MARCELL, Routine 5 700 Daily PO Box Medical Juju L, 1522, [place] Jazmyne Alexandre, , Ayaz Romero [place], 120, [place] [id number], Jhoan [facility] 120, [place], [place], tel:[phone] [place], , [place]. [id number]. tel: tel: [phone] Bibiana [place] Routine Care, Oct-2 Juju In Womens Pgrwdifgouwk86 6-201 Daily. Health MARCELL, weeks gestation 5 700 PO Box of Medical 1522, [place] Dr Bettie, Ayaz [place], 120, [id number], [facility] [place], tel:[phone] , [place]. tel: [phone] Bibiana [place] Routine Care, Oct-1 Juju In Womens Icjkyjkeygfu22 9-201 Daily. Health MARCELL, weeks gestation 5 700 PO Box of Medical 1522, [place] Dr Bettie, Ayaz [place], 120, [id number], [facility] [place], tel:[phone] , [place]. tel: [phone] Bibiana [place] Routine Care, Oct-1 Juju In Womens Ltfqeysayfdg97 3-201 Daily. Health MARCELL, weeks gestation 5 700 PO Box of Medical 1522, [address], Ay[place], 120, [id number], [facility] [place], tel:[phone] , [place]. tel: [phone] Bibiana [place] Sep-2 Juju Referring In Womens 8-201 Daily. Provider: Health MARCELL, 5 700 Daily PO Box Medical Juju L, 1522, [place] [address] [address] Medical [place], 120, [place] [id number], Jhoan [facility] 120, [place] Jhoan, tel: [phone] [place], , [place]. [id number]. tel: tel: [phone] Bibiana [place] Nimesh In Womens 1-200 [place]. 700 [facility], 8 Medical PO Box Center 1522, , Ayza Alexandre, 120, Jhoan [place], [id number], [place], [place] [id number] tel: , [place]. tel: [phone] Family History Family Member Diagnosis Age At [...] name Insurance type Covered republican ID Authorization(s) [facility] [id number] Social History Type Description Quantity Date Captured Alcohol Use Details No Caffeine Use Details Unknown Tobacco Use Status Unknown Smoking Status Never smoker Vital Signs Date / Height Weight BMI Pulse Blood Temperature Respiratory Body Head BMI Time: Rate Pressure Rate Surface Circumference percentile Area 155.80 26.3 100/61 2017 lbs 3 mm[Hg] 9:42 kg/m AM eter (2) 8 9:39 kg/m AM eter (2) Chief Complaint And Reason For Visit Unknown Chief Complaint And Reason For Visit Reason For Referral Reason For Referral Unknown Plan Of Care Date Type Action Status Appointment Isabella Knight BOOKED Appointment Isabella Knight BOOKED Appointment Isabella Knight BOOKED Future Order: Radiology Order OB Detailed Complete Ultrasound Ordered ([id number]) Date Type Problem Goal Intervention Status Start [...]
--- OUTSIDE RECORDS SUMMARY | 2017-05-20 05:37 | External Medical Summary | Continuity of Care Document ---
:1980 Author Organization [facility] Address [address] [place], [place] [address] Phone Support Name Relationship Address Phone Dio Knight spouse [address] [facility] [phone] [place] [address] Allergies, Adverse Reactions, Alerts Substance Reaction Severity [...] third trimester 35 weeks gestation of - Supervision of elderly [...] third trimester 37 weeks gestation of - Dysuria Follow-Up, Routine - Painful micturition, unspecified Follow-Up, Routine - Follow-Up, Routine Encounter for suprvsn of normal - , first trimester 9 weeks gestation of - Routine Care, Multigravida 38 weeks gestation of - Routine Care, Multigravida 36 weeks gestation of - Routine Care, Multigravida 37 weeks gestation of - Active Procedures Procedure Date OB Visit No Charge - PROJECT ENGINEERING MANAGER Cult, pathgnc orgnsm, screen Results Test Name Date and Time Measure Units Reference Range Abnormal Flag Comments Panel Description: STREPTOCOCCUS, GROUP B CULTURE STREPTOCOCCUS, GROUP SEE NOTE STREPTOCOCCUS, GROUP B CULTURE B CULTURE 10:14:00 MICRO NUMBER: [id number] TEST STATUS: FINAL SPECIMEN SOURCE: VAGINAL/ANORECTAL SPECIMEN QUALITY: ADEQUATE RESULT: No group B Streptococcus isolatedREPORT COMMENT:FASTING:UNKNOWNTest performed at [facility] [employer] [id number] [place] [address]Gewuoysg: IRIS ABDI DO,MPH Advance Directives Directive Yes / No Effective Date File Name Unknown Encounters Encounter Practice Location Reason(s) Diagnoses Date Provider Care Team Description For Visit Members Bibiana [place] Supervision of Juju In Womens elderly 3-201 Daily. amairani Heard, 7 [address] Medical [address], [facility] [facility] Ayaz Ybarra, C-SectionEncounte 120, [id number], r for marianne lomax [place], [place] , [place], tel:+ third [id number] [phone] weeks gestation , [place]. of tel: [phone] Bibiana Staples Supervision of Apr-0 Juju In Womens elderly 6- Daily. amairani Heard, 7 700 [address] third Medical 1522, trimesterPrevious [place] [facility] Alexandre Transverse Ayaz Ybarra, C-SectionEncounte 120, [id number], r for Billy, [place] , [place], tel:+ third [email or web address] [phone] [id number] weeks gestation , [place]. of tel: [phone] Bibiana Staples Supervision of Mar-3 Juju In Womens elderly 0-201 Daily. amairani Heard, 7 700 PO Box third Medical 1522, trimesterPrevious [place] Bi Alexandre Transverse Ayaz Ybarra, C-SectionEncounte 120, [id number], r for Billy, [place] , [place], tel:[phone] third [id number] [phone] weeks gestation , [place]. of tel: [phone] Bibiana Staples Supervision of Juju Referring In Womens elderly 6-201 Daily. Provider: amairani Heard 7 700 [place] PO Box third Medical Juju L, 1522, trimesterPrevious Center [facility] Bi Alexandre Transverse , Ayaz Heather VEGA, C-SectionEncounte 120, [place] , r for suprvsEduardo, [facility] 120, [place] , [place], [place], tel: third [id number] [phone] [place], [id number] weeks gestation , [place]. [id number]. of tel: tel: [phone] Associates [facility] Supervision of Oct-0 Juju In Womens elderly 2- Daily. Health PA, multigravida, 7 700 PO [address] third Medical 1522, trimesterPrevious Center [place], Low Transverse Ayaz Ybarra, C-SectionEncounte 120, [id number], r for suprvsn of [place], [place] , [place], tel: third [id number] [phone] weeks gestation , [place]. of tel: [phone] Bibiana Staples Supervision of Sep-2 Juju In Womens elderly 2- Daily. Health PA, multigravida, 7 700 PO Box third Medical 1522, trimesterPrevious Center [place], Low Transverse Ayaz Ybarra, C-SectionEncounte 120, [id number], r for suprlogan of [place], [place] , [place], tel: third [id number] [phone] weeks gestation , [place]. of tel: [phone] Bibiana Staples Supervision of Jan-2 Juju In Womens elderly 8- Daily. Health PA, multigravida, 7 700 PO Box second Medical 1522, trimesterPrevious Center Bettie Low Transverse Ayaz Ybarra, C-SectionEncounte 120, [id number], r for suprolgan lomax [place], [place] , [place], tel: second [phone] [id number] weeks , [place]. gestation of tel: [phone] [facility] Supervision of Aug-0 Juju In Womens elderly 2- Daily. Health PA, multigravida, 7 700 PO Box second Medical 1522, trimesterPrevious Center [place], Low Transverse Ayaz Ybarra, C-Keheuca76 weeks 120, [id number], gestation of [place], tel:[phone] , [place]. tel: [phone] Bibiana Staples Supervision of Bob-0 Juju In Womens elderly 5-201 Daily. Health PA, multigravida, 7 700 PO Box second Medical 1522, trimesterPrevious [facility], Low Transverse Ayaz Ybarra, C-SectionEncounte 120, , r for suprvsn of [facility] normal , [place], tel: second [phone] weeks , [place]. gestation of tel: [phone] Bibiana Staples Supervision of Bob-0 Juju In Womens Ultrasound elderly 5-201 Daily. Health PA, multigravida, 7 700 PO Box second Medical 1522, trimesterPrevious [facility], Low Transverse Ayaz Ybarra, C-Evqnjnx85 weeks 120, , gestation of [facility] [place], tel:[phone] , [place]. tel: [phone] Bibiana Staples Supervision of May-3 Juju In Womens elderly 1-201 Daily. Health MARCELL, multigravida, 7 700 PO Box second Medical 1522, [id number] weeks [facility], gestation of Ayaz bYarra, 120, , [place], [place], tel:+ [phone] , [place]. tel: [phone] Bibiana Staples Encounter for May-0 Juju In Womens suprvsn of normal 1-201 Daily. Health MARCELL, , first 7 700 PO Box trimester9 weeks Medical 1522, gestation of [facility], Ayaz Ybarra, 120, , [place], tel:+ [phone] , [place]. tel: [phone] Bibiana Staples Painful Dec-0 Anderson In Womens micturition, 7- Germaine. Health MARCELL, unspecifiedPostpa 5 700 PO Box rtum Follow-Up, Medical 1522, RoutinePostpartum [facility], Follow-Up, Ayaz Ybarra, Routine 120, , [place], [place], tel:[phone] , [place]. tel:[phone] Bibiana Staples DysuriaPostpartum Nov-0 Juju Referring In Womens Follow-Up, 9-201 Daily. Provider: Ani FAITH, Routine 5 700 Daily PO Box Medical Juju L, 1522, Center [facility] Dr Bettie, [facility] [place], 120, [place] [id number], Jhoan, [facility] 120, [place], [place], tel:[phone] [place], , [place]. [id number]. tel: tel: [phone] Bibiana Staples Routine Care, Oct-2 Juju In Womens [id number] 6-201 Daily. Ani FAITH, weeks gestation 5 700 PO Box of Medical 1522, [place] Dr Bettie, [facility] [place], 120, [id number], [place], [place], tel:[phone] , [place]. tel: [phone] Bibiana Staples Routine Care, Oct-1 Juju In Womens [id number] 9-201 Daily. Health MARCELL, weeks gestation 5 700 PO Box of Medical 1522, [place] Dr Bettie, [facility] [place], 120, [id number], [facility] [place], tel: [phone] , [place]. tel: [phone] Bibiana Staples Routine Care, Oct-1 Juju In Womens [id number] 3-201 Daily. Ani FAITH, weeks gestation 5 700 PO Box of Medical 1522, [place] Dr Bettie, [facility] [place], 120, [id number], [place], tel: [phone] , [place]. tel: [phone] Bibiana Staples Sep-2 Juju Referring In Womens 8-201 Daily. Provider: Ani FAITH, 5 700 Daily PO Box Medical Juju L, 1522, [place] [address], [facility] [place], 120, [place] [id number], [facility] 120, [place], [place], tel:[phone] [place], , [place]. [id number]. tel: tel: [phone] Bibiana Jhoan Nimesh In Womens 1-[address], [address] [place] [address] 1522, Ayaz Ybarra, [facility], [place], [place], [id number], [place], [id number] tel: , . [phone] tel: [phone] Family History Family Member Diagnosis Age At [...] Unspecified Payers Payer name Insurance type Covered libertarian ID Authorization(s) [facility] [id number] Social History Type Description Quantity Date Captured Alcohol Use Details No Caffeine Use Details soda 1 cup per day Tobacco Use Status Never smoked tobacco Smoking Status Never smoker Vital Signs Date / Height Weight BMI Pulse Blood Temperature Respiratory Body Head BMI Time: Rate Pressure Rate Surface Circumference percentile Area 163.90 27.7 102/66 -2017 lbs 0 mm[Hg] 9:50 kg/m AM etnatalie (2) Chief Complaint And Reason For Visit Unknown Chief Complaint And Reason For Visit Reason For Referral Reason For Referral Unknown Plan Of Care Date Type Action Status Appointment Isabella Knight BOOKED Appointment Isabella Knight [facility] R C/S- MB Assist BOOKED Future Order: Radiology Order OB Detailed Complete Ultrasound Ordered ([id number]) Date Type Problem Goal Intervention Status Start Date Unknown. History Of Present Illness Encounter Date Complaint History Of Present Illness This patient has no known history of present illness Functional Status Encounter Date Functional Assessment Cognitive Assessment Unknown Medications Administered Medication Instructions Dosage Effective Dates (start - stop) Status Comments Drug Treatment Unknown Instructions Date Instruction Additional Information May-01-2017 HIV and other routine tests risk factors [...]
--- OUTSIDE RECORDS SUMMARY | 2017-05-20 05:37 | External Medical Summary | Continuity of Care Document ---
:1980 Author Organization [facility] Address [address] [place], [place] [id number] Phone Support Name Relationship Address Phone Dio Knight spouse [address] [facility] [phone] [place] [address] Allergies, Adverse Reactions, Alerts Substance Reaction Severity [...] Provider Care Team Description For Visit Members [facility] Supervision of Juju In Womens elderly 6-201 [facility], multigravida, 7 700 PO Box third Medical 1522, [facility] [place], Low Transverse Ayaz Ybarra, C-SectionEncounte 120, [id number], r for suprvsn of [place], [place] , [place], tel:[phone] third [id number] [phone] 180400 weeks gestation , [place]. of tel: [phone] Bibiana Staples Supervision of Oct-3 Juju In Womens elderly 0-201 Daily. Health PA, multigravida, 7 700 PO Box third Medical 1522, trimesterPrevious Center [place], Low Transverse Ayaz Ybarra, C-SectionEncounte 120, [id number], r for Billy, [place] , [place], tel: third [id number] [phone] weeks gestation , [place]. of tel: [phone] Bibiana Staples Supervision of Oct-1 Juju Referring In Womens elderly 6-201 Itmann. Provider: Health riya FAITHgravipanfilo, 7 700 Daily PO Box third Medical Juju L, 1522, trimesterPrevious [facility], Low Transverse Ayaz Ybarra, C-SectionEncounte 120, [place] , r for Billy [facility] 120, [place] , [place], [place], tel: third [id number] [phone] [place], [address] weeks gestation , [place]. [id number]. of tel: tel: [phone] Bibiana Staples Supervision of Oct-0 Juju In Womens elderly 2-201 Itmann. Health MARCELL, multigravida, 7 700 PO Box third Medical 1522, trimesterPrevious Center [place]ett[place] Low Transverse Ayaz Ybarra, C-SectionEncounte 120, [id number], r for Billy, [place] , [place], tel: third [id number] [phone] 605522 weeks gestation , [place]. of tel: [phone] Bibiana Staples Supervision of Sep-2 Juju In Womens elderly 2-201 Daily. Health PA, multigravida, 7 700 PO Box third Medical 1522, trimesterPrevious Center [place], Low Transverse Ayaz Ybarra, C-SectionEncounte 120, [id number], r for Billy, [place] , [place], tel: third [id number] [phone] 911253 weeks gestation , [place]. of tel: [phone] Associates [facility] Supervision of Jan-2 Juju In Womens elderly 8-201 Daily. Health PA, multigravida, 7 700 PO Box second Medical 1522, trimesterPrevious Center [place], Low Transverse Ayaz Ybarra, C-SectionEncounte 120, [id number], r for suprpauln of [place], [place] , [place], tel:[phone] second [phone] [id number] weeks , [place]. gestation of tel: [phone] [facility] Supervision of Aug-0 Juju In Womens elderly 2-201 Daily. Health PA, multigravida, 7 700 PO Box second Medical 1522, trimesterPrevious Center [place], Low Transverse Ayaz Ybarra, C-Dvgejay21 weeks 120, , gestation of [place], [place], tel:+ [phone] , [place]. tel: [phone] Bibiana [place] Supervision of Dec-0 Juju In Womens elderly 5-201 Daily. Health PA, multigravida, 7 700 PO Box second Medical 1522, trimesterPrevious Center [place], Low Transverse Ayaz Ybarar, C-SectionEncounte 120, [id number], r for suprlogan of [place], [place] , [place], tel:+[phone] second [phone] 751552 weeks , [place]. gestation of tel: [phone] [facility] Supervision of Dec-0 Juju In Womens Ultrasound elderly 5-201 Daily. Health PA, multigravida, 7 700 PO Box second Medical 1522, trimesterPrevious Center [place], Low Transverse Ayaz Ybarra, C-Dqrahqg70 weeks 120, , gestation of [place], [place], tel:+ [phone] , [place]. tel: [phone] Bibiana [place] Supervision of October-3 Juju In Womens elderly 1-201 Daily. Health PA, multigravida, 7 700 PO Box second Medical 1522, [email or web address] weeks Center [place], gestation of Ayaz Ybarra, 120, , [place], tel:+ [phone] , [place]. tel: [phone] Associates [facility] Encounter for May-0 Juju In Womens suprvsn of normal 1-201 Daily. Health MARCELL, , first 7 700 PO Box trimester9 weeks Medical 1522, gestation of [facility], , Ayaz VEGA, 120, [id number], [place], [place], tel: [phone] , [place]. tel: [phone] [facility] Painful Dec-0 Anderson In Womens micturition, 7-201 Germaine. Health MARCELL, unspecifiedPostpa 5 700 PO Box rtum Follow-Up, Medical 1522, RoutinePostpartum [place], Follow-Up, , Ayaz VEGA, Routine 120, , [facility] [place], tel:[phone] , [place]. tel: [phone] Bibiana [place] DysuriaPostpartum Nov-0 Juju Referring In Womens Follow-Up, 9-201 Daily. Provider: Ani FAITH, Routine 5 700 Daily PO Box Medical Juju L, 1522, Center [facility] Bettie, , [facility] [place], 120, [place] , Jhoan [place] [address], [place], Jho[place], tel:[phone] [place], , [place]. [id number]. tel: tel: [phone] Bibiana [place] Routine Care, Oct-2 Juju In Womens [id number] 6-201 Daily. Ani FAITH, weeks gestation 5 700 PO Box of Medical 1522, [place] Dr Bettie, Ayaz VEGA, 120, [id number], [place], [place], tel:[phone] , [place]. tel: [phone] [facility] Routine Care, Oct-1 Juju In Womens [id number] 9-201 Daily. Ani FAITH, weeks gestation 5 700 PO Box of Medical 1522, [place] Dr Bettie, Ayaz VEGA, 120, [id number], [place], [place], tel:[phone] , . tel: [phone] Bibiana [place] Routine Care, Oct- Juju In Womens [id number] 3-201 Daily. Health PA, weeks gestation 5 700 PO Box of Medical 1522, Center Btetie, , [facility] [place], 120, [id number], [place], [place], tel: [phone] , [place]. tel: [phone] Bibiana [place] Sep-2 Juju Referring In Womens 8-201 Daily. Provider: Health MARCELL, 5 700 Daily PO Box Medical Juju L, 1522, Center 700 Bettie, , [facility], 120, [place] [id number], Jhoan, [facility] 120, [place], Jho[place], tel: [phone] [place], , [place]. [id number]. tel: tel: [phone] Bibiana [place] Mar-3 Nimesh In Womens 1-200 Andrae. 700 Health [place], 8 Medical PO Box Center 1522, , [facility] Bettie, 120, [place], [place]ho[place], [id number], [place], [place] [id number] tel: , . tel: [phone] Family History Family Member Diagnosis Age At [...] name Insurance type Covered libertarian ID Authorization(s) [facility] [id number] Social History Type Description Quantity Date Captured [...] Appointment Isabella Knight BOOKED Appointment Isabella Knight [facility] R C/S- MB Assist BOOKED Future Order: Radiology Order OB Detailed Complete Ultrasound Ordered ([id number]) Date Type Problem Goal Intervention Status Start [...]
--- OUTSIDE RECORDS SUMMARY | 2017-05-20 05:37 | External Medical Summary | Continuity of Care Document ---
:1980 Author Organization [facility] Allergies Active Description Code Type Severity Reaction Onset Reported/ Identified Relationship Clinical to Patient Status Yes No Known 45885 3 N/A N/A Drug 0 Allergies Medications Medication Packaging Start Date Stop Date Route Dosage Sig Capsule 05/29/2015 10/21/2016 KEFLEX take 1 capsule by ORAL route 3 times every day Problems Date Dx Coded Attending Type Code Diagnosis Diagnosed By 03/20/2015 Daily Matute 656.53 Small For L Gestational Age, Antepartum 03/20/2015 Daily Matute 654.23 Previous L , Antepartum 05/01/2015 Daily Matute R30.0 Dysuria L 05/01/2015 Daily Matute Z39.2 L Follow-Up, Routine 05/03/2015 Daily [place] R30.0 Dysuria L 05/03/2015 Daily Mat[place] Z39.2 L Follow-Up, Routine 12/25/2016 Daily Matute O09.522 Supervision of L elderly multigravida, second trimester 12/25/2016 Daily Matute O34.211 Previous Low L Transverse 12/25/2016 Daily [place] Z3A.19 19 weeks gestation L of 04/07/2017 Daily [place] O09.523 Supervision of L elderly multigravida, third trimester 04/07/2017 Daily [place] O34.211 Previous Low L Transverse 04/07/2017 Daily [place] Z34.83 Encounter for L suprvsn of normal , third trimester 04/07/2017 Daily [place] Z3A.33 33 weeks gestation L of Procedures Code Description Performed By Performed On 03/20/2015 87793 Ultrasnd preg uterus, flwup/repeat 05/01/2015 30595 Urinalysis,Non-automated , w/o scope No 05/01/2015 16624 Charge Office Visit OB 12/25/2016 80582 US, DETAILED, SNGL FETUS OB 04/07/2017 81672 Visit No Charge Results Encounters ACCT No. Visit Discharge Status Pt. Type Provider Facility Loc./Unit Complaint Date/Time [id number] 05/12/2017 05/12/2017 CLS Outpatient Juju, 11:30:00 23:59:59 Daily L [id number] 05/05/2017 05/05/2017 CLS Outpatient Juju, 13:15:00 23:59:59 Daily L [id number] 04/28/2017 04/28/2017 CLS Outpatient Juju, 09:40:00 23:59:59 Daily L [id number] 04/21/2017 04/21/2017 CLS Outpatient Juju, 09:45:00 23:59:59 Daily L [id number] 04/07/2017 04/07/2017 CLS Outpatient Juju, 13:20:00 23:59:59 Daily L [id number] 03/24/2017 03/24/2017 CLS Outpatient Juju, 13:15:00 23:59:59 Daily L [id number] 03/14/2017 03/14/2017 CLS Outpatient Juju, 13:15:00 23:59:59 Daily L [id number] 02/17/2017 02/17/2017 CLS Outpatient Juju, 09:30:00 23:59:59 Daily L [id number] 01/22/2017 01/22/2017 CLS Outpatient Juju, 10:00:00 23:59:59 Daily L [id number] 12/25/2016 12/25/2016 CLS Outpatient Juju, 11:25:00 23:59:59 Daily L [id number] 12/25/2016 12/25/2016 CLS Outpatient Juju, 11:15:00 23:59:59 Daily L [id number] 11/20/2016 11/20/2016 CLS Outpatient Juju, 09:30:00 23:59:59 Daily L [id number] 10/21/2016 10/21/2016 CLS Outpatient Juju, 10:15:00 23:59:59 Daily L [id number] 05/29/2015 05/29/2015 CLS Outpatient Anderson, 10:00:00 23:59:59 Germaine Terry [id number] 05/01/2015 05/01/2015 CLS Outpatient Juju, 10:30:00 23:59:59 Daily L [id number] 04/20/2015 04/20/2015 CLS Outpatient Juju, 10:57:00 23:59:59 Daily L [id number] 04/17/2015 04/17/2015 CLS Outpatient Juju, 08:30:00 23:59:59 Daily L [id number] 04/10/2015 04/10/2015 CLS Outpatient Juju, 09:45:00 23:59:59 Daily L [id number] 04/04/2015 04/04/2015 CLS Outpatient Juju, 11:30:00 23:59:59 Daily L [id number] 03/20/2015 03/20/2015 CLS Outpatient Juju, 09:15:00 23:59:59 Daily L [id number] 03/20/2015 03/20/2015 CLS Outpatient Juju, 08:45:00 23:59:59 Daily L [id number] 03/13/2015 03/13/2015 CLS Outpatient Zurita, 16:17:00 23:59:59 Isabella Regalado [id number] 03/06/2015 03/06/2015 CLS Outpatient Juju, 08:30:00 23:59:59 Daily L [id number] 02/20/2015 02/20/2015 CLS Outpatient Juju, 09:15:00 23:59:59 Daily L
[2017-05-20] MEDS ORDERED: NOZIN NASAL SWAB NAS ONE (05:41)
[2017-05-20] MEDS ORDERED: CITRIC ACID/SODIUM CITRATE 30ml PO ONE (05:41)
[2017-05-20] MEDS ORDERED: FAMOTIDINE PB 20 MG/50 ML BAG IV ONE (05:41)
[2017-05-20] MEDS ORDERED: CEFAZOLIN PREMIX (MC ONLY) 2 GM/50 ML BAG IV ONE (05:41)
[2017-05-20 06:13] VITALS: BMI 28.3
[2017-05-20] MEDS: LR 1,000 ML IV SCH ×2 (06:28→06:41)
[2017-05-20] MEDS ORDERED: MORPHINE SULFATE PF 5mg/10ml INJ (Duramorph) ONE (07:05)
[2017-05-20] MEDS ORDERED: FentaNYL 100 MCG/2 ML INJECTION ONE (07:05)
[2017-05-20] MEDS ORDERED: OXYTOCIN BOLUS BAG 30 UNIT/500 ML ML IV SCH (07:45)
[2017-05-20] MEDS ORDERED: DiphenhydrAMINE 50 MG/ML INJECTION IVP PRN (07:53)
[2017-05-20] MEDS ORDERED: NALOXONE 2 MG/2 ML INJECTION PFS IVP PRN (07:53)
[2017-05-20] MEDS ORDERED: ONDANSETRON 4 MG/2 ML INJECTION IVP PRN (07:53)
--- NOTE | 2017-05-20 07:53 | Anesthesia Preoperative Report ---
Anesthesia Preoperative Record - Date and Time Date: 05/20/17 Preoperative Diagnosis: repeat Section Proposed Procedure: repeat NPO Since Date: 05/19/17 NPO Since Time: 23:00 Allergies/Adverse Reactions: Allergies Allergy/AdvReac Type Severity Reaction Status Date / Time Tuberculin,Old Skin Test Allergy Mild LOCAL Uncoded 12/13/09 08:39 REACTION - Vital Signs Vital Signs: Temperature 98.1 F 05/20/17 06:13 Pulse Rate 65 05/20/17 06:13 Respiratory Rate 20 05/20/17 06:13 Blood Pressure 115/76 05/20/17 06:13 Pulse Oximetry 98 05/20/17 06:13 Height and Weight: Height 5 ft 4 in Weight 75 kg Body Mass Index 28.3 - Medications Inpatient Medications: Current Medications Lactated Ringer's (Lactated Ringers) 1,000 mls @ 999 mls/hr IV .Q1H1M [facility] Last Admin: 05/20/17 06:41 Dose: 999 mls/hr Oxytocin (Pitocin Bolus Bag) 30 unit in 500 mls @ 999 mls/hr IV .Q31M [facility] Stop: 05/20/17 08:15 Last Admin: 05/20/17 07:40 Dose: 999 mls/hr Home Medications: Home Medications Medication Instructions Recorded Confirmed Type Vit/Fe Fumarate/Fa 1 tab PO DAILY #0 12/14/09 05/19/17 History ( Vitamin Tablet) Culturelle 1 cap PO DAILY 05/19/17 05/19/17 History Is Patient on Beta Donell?: No - Medical History Respiratory: DENIES: Asthma Cardiovascular: DENIES: Angina, Hypertension Gastrointestional: DENIES: Gastroesophageal Reflux Disease Renal/Endocrine: DENIES: Diabetes Mellitus Type 2 Other History: Reports: Now DENIES: Anesthesia Reactions - Surgical History HEENT Surgeries: Reports: Oral Surgery (WISDOM TEETH) Reproductive Surgery/Treatment: Reports: Section Hx Family Anesthesia Reaction: No History of Motion Sickness: No - Social History Smoking Status: Never smoker Hx Chewing Tobacco Use: No Second Hand Exposure: No Substance Use Type: does not use - Pertinent Findings Laboratory: CBC and BMP 05/20/17 05:55 EKG: Accelerated Junctional - Physical Exam Respiratory Exam: Present: lungs clear, bilateral breath sounds equal Cardiovascular Exam: Present: regular rate and rhythm - Airway Assessment Mallampati Score: II TMD: 3 Fingerbreadths Neck Extension: good Overall Assessment: may be difficult intubation - ASA ASA Score: 2 - Plan Anesthesia: Neuroaxial Regional/Trunk Block: Spinal - Discussion Discussion: Discussed risks/options/alternatives of anesthesia and questions answered. Patient consents. Nursing pain assessment noted. Present for Discussion: spouse Attestation Statement: Prior to the delivery of any anesthetic medication, I examined the patient, developed the plan, obtained the patient's consent and discussed the risk and benefits of the procedure with the patient/guardian. - Additional Information Seen by Anesthesia: Yes
[2017-05-20] MEDS ORDERED: TRANEXAMIC ACID 1,000 MG in NS 100 ML IV ONE (07:58)
[2017-05-20] MEDS ORDERED: ACETAMINOPHEN 500 MG TABLET PO PRN (09:00)
[2017-05-20] MEDS ORDERED: SIMETHICONE 80 MG CHEWABLE TABLET PO PRN (09:00)
[2017-05-20] MEDS ORDERED: DiphenhydrAMINE 25 MG CAPSULE PO PRN (09:00)
[2017-05-20] MEDS ORDERED: OXYTOCIN DRIP 30 UNIT/500 ML ML IV SCH (09:00)
[2017-05-20] MEDS ORDERED: HYDROCORTISONE 2.5% CREAM 30gm RECTALLY PRN (09:00)
[2017-05-20] MEDS ORDERED: CALCIUM CARBONATE Chewable 500mg TABLET PO PRN (09:00)
[2017-05-20] MEDS: D5LR 1,000 ML IV SCH (09:04)
[2017-05-20] MEDS: DOCUSATE CALCIUM 240 MG CAPSULE PO SCH (10:12)
[2017-05-20] MEDS: HYDROCODONE/APAP 5mg/325mg TABLET PO PRN (10:37)
[2017-05-20] MEDS: IBUPROFEN 800 MG TABLET PO PRN ×2 (10:37→18:30)
[2017-05-20] MEDS: SIMETHICONE 80 MG CHEWABLE TABLET PO SCH ×2 (10:48→22:06)
--- NOTE | 2017-05-20 14:30 | Operative Note ---
DATE OF PROCEDURE 05/20/2017 PREOPERATIVE DIAGNOSIS Term , previous x 3. POSTOPERATIVE DIAGNOSIS Term , previous x 3 - delivered. PROCEDURE Repeat low transverse section. SURGEON Daily Matute MD METAL CONTROL WORKER Merlin Aquino, Social Media Manager ANESTHESIA Combo spinal/epidural ARCHITECTURAL MODELER Ganesh Hayden CRNA EBL 800 ml OPERATIVE FINDINGS Adhesions of the omentum to the anterior uterine corpus and of the anterior uterus to the anterior abdominal wall. Normal uterus, tubes and ovaries otherwise. DESCRIPTION OF PROCEDURE Ms. Knight was brought to the OR and given regional analgesia to good effect. She was then placed on the OR table in the supine position with left lateral displacement. A Burnham catheter was placed to dependent drain. The abdomen was prepped and draped in the usual sterile fashion. A Pfannenstiel skin incision was made through the patient's prior scar. This was carried down to fascia. Fascia was incised transversely. This was then tented up. We then sharply and bluntly dissected the rectus muscles free of the fascia. The peritoneum was entered in the course of this. This was then carefully explored and extended vertically. We used sharp dissection to carefully dissect the peritoneal adhesions between the uterus and anterior abdominal wall until we could get the bladder blade in. There were then adhesions from the omentum to the anterior uterus. These were controlled at the uterus with cautery and sharp and blunt dissection. We were then able to see the vesicouterine fold of peritoneum. This was well below our area of operation. I then made a low transverse uterine incision. There was copious clear amniotic fluid. I extended the incision vertically bluntly. Baby was then delivered in the vertex OA presentation without difficulty. Baby was bulb suctioned on the abdomen. Cord was doubly clamped and cut and baby was given to the pediatric team for care. This is a liveborn female with Apgars of 8/9/9. She weighed 6 pounds, 14.6 ounces. The placenta was then expressed intact. It had a normal configuration. It was somewhat small but normal otherwise. Normal cord. The uterus was then swept clear of membranes and exteriorized. The myometrial incision was reapproximated with a running locking O Monocryl. There were two small areas along the suture line that continued to bleed. We secured these with figure-of- eight ties of 3-0 chromic. We also gave TXA during the course of dissecting of all the adhesions. Once we had assured hemostasis we removed the gross blood clots from the abdomen and returned the uterus, tubes and ovaries to the abdominal cavity. We then placed two sheets of Interceed over the lower uterine segment making sure it did cover all the areas of prior adhesions. The peritoneum was then reapproximated with a running nonlocking 2-0 Vicryl. Fascia was reapproximated with a running nonlocking 0 Vicryl. Skin edges were then reapproximated with a subcuticular style 3-0 undyed Vicryl. The wound was dressed with Steri-Strips and a sterile dressing. Counts were correct postoperatively x 2. The urine remained clear and free-flowing throughout the procedure. Ms. Knight has just been transferred to recovery in stable condition along with her baby. ALEX
--- NOTE | 2017-05-20 14:31 | Anesthesia Postoperative Note ---
- Date and Time Date: 05/20/17 Time: 14:31 - Status Patient Participated in Evaluation: Patient Participated in Person Vital Signs: Temperature 98.0 F 05/20/17 12:48 Pulse Rate 83 05/20/17 12:48 Respiratory Rate 18 05/20/17 12:48 Blood Pressure 120/71 05/20/17 12:48 Pulse Oximetry 100 05/20/17 12:48 Mental Status: Alert and Oriented Pain Intensity: 2 Hydration: Taking PO Fluids Complications During Recover: None Apparent - Follow-Up Instructions Instructions: Per Surgeon
[2017-05-21] MEDS: IBUPROFEN 800 MG TABLET PO PRN ×3 (02:33→19:48)
[2017-05-21] MEDS: SIMETHICONE 80 MG CHEWABLE TABLET PO SCH ×6 (02:34→22:27)
[2017-05-21] MEDS: D5LR 1,000 ML IV SCH (02:54)
[2017-05-21] MEDS: HYDROCODONE/APAP 5mg/325mg TABLET PO PRN ×3 (06:42→18:22)
--- NOTE | 2017-05-21 08:17 | OB/GYN Progress Note ---
OB-PP Progress Note - General PPD1 - Subjective Date: 05/21/17 Lochia: Minimal Pain: moderate Voiding: voiding Nausea or Vomiting Present: No - Objective Vital Signs: Last Vital Signs Temp 98 F 05/21/17 00:00 Pulse 71 05/21/17 00:00 Resp 16 05/21/17 00:00 BP 102/64 05/21/17 00:00 Pulse Ox 97 05/21/17 00:00 General: alert and oriented Abdomen: fundus firm, non-tender Incision: dry, dressed Extremities: non-tender Laboratory: Laboratory Results - last 24 hr 05/20/17 14:06 WBC 18.7 H D RBC 3.97 L Hgb 11.6 L Hct 36.0 MCV 90.7 MCH 29.2 MCHC 32.2 RDW Std Deviation 41.5 Plt Count 177 MPV 11.4 - Assessment Assessment: SP, Repeat C/S - Plan Plan: routine care
[2017-05-21] MEDS: DOCUSATE CALCIUM 240 MG CAPSULE PO SCH (10:23)
[2017-05-21 19:58] VITALS: RESP 16
[2017-05-22 00:37] VITALS: BP 105/66; PULSE 81; TEMP 98; O2SAT 98
[2017-05-22] MEDS: HYDROCODONE/APAP 5mg/325mg TABLET PO PRN ×2 (03:51→08:55)
[2017-05-22] MEDS: IBUPROFEN 800 MG TABLET PO PRN (03:51)
--- NOTE | 2017-05-22 08:18 | OB/GYN Progress Note ---
OB-PP Progress Note - General POD:: POD2 - Subjective Date: 05/22/17 Lochia: Minimal Pain: controlled Voiding: voiding (Has some burning with urination. Instructed to call if continues at home. ) Nausea or Vomiting Present: No - Objective Vital Signs: Last Vital Signs Temp 98.0 F 05/21/17 23:42 Pulse 81 05/21/17 23:42 Resp 16 05/21/17 23:42 BP 105/66 05/21/17 23:42 Pulse Ox 98 05/21/17 23:42 Urine Output: good General: alert and oriented Respiratory: non-labored Abdomen: fundus firm Incision: intact Extremities: non-tender - Assessment Assessment: Repeat C/S - Plan Plan: routine care, discharge home
[2017-05-22] MEDS: SIMETHICONE 80 MG CHEWABLE TABLET PO SCH (08:54)
[2017-05-22] MEDS: DOCUSATE CALCIUM 240 MG CAPSULE PO SCH (08:55)
== END 2017-05-22 10:21 | disposition home or self-care (01) | DRG 766 ==
LOC: MC 05:26
PROVIDERS: ADMIT Obstetrics & Gynecology; ATTEND Obstetrics & Gynecology